=== PATIENT | female | born 1990 | race Caucasian/White ===

== ENCOUNTER → 2017-09-23 23:55 | Observation (INO) ==
[2017-09-23 23:21] LABS: Bilirubin,Urine Negative (Negative); Blood,Urine Negative (Negative); Clarity,Urine Clear (Clear); Color,Urine Yellow (Yellow); Glucose,Urine (UA) Normal (Normal); Ketones,Urine Negative (Negative); Leukocyte Esterase,Urine Negative (Negative); Nitrite,Urine Negative (Negative); Protein,Urine Negative (Neg-Trace); Specific Gravity,Urine < 1.005 (1.010-1.025); Urobilinogen,Urine Normal (Normal)
[2017-09-23 23:40] LABS: Amphetamine Screen,Urine Negative ng/mL (Cutoff=1000); Barbiturate Screen,Urine Negative ng/mL (Cutoff=200); Benzodiazepines Screen,Urine Negative ng/mL (Cutoff=200); Cannabinoid Screen,Urine Negative ng/mL (Cutoff = 50); Cocaine Screen,Urine Negative ng/mL (Cutoff= 300); Opiate Screen,Urine Negative ng/mL (Cutoff=300); Phencyclidine Screen,Urine Negative ng/mL (Cutoff=25)
--- NOTE | 2017-09-24 00:41 | OB/GYN Progress Note ---
Date of Encounter: 09/24/17 Time of Encounter: 22:44 - Assessment and Plan (1) 35 weeks gestation of Current Visit: Yes Status: Acute Continue care as scheduled labor precautions given Revised kick count instructions given Discharge home Subjective - Subjective Principal diagnosis: decreased movement Interval history: Ms. Lanier 27-year-old G1 at 35 weeks states she has not felt the baby move since yesterday. She reports she has tried many maneuvers in order to facilitate baby movement and none have been successful. She denies contractions, leakage of fluid, vaginal bleeding. Antepartum ROS: no loss of fluid, no vaginal bleeding, no movement normal , no contractions Objective - Vital Signs Vital Signs: Intake and Output 09/23/17 09/23/17 09/24/17 15:59 23:59 07:59 Other: Weight 125.1 kg - Exam FHR: category 1 FHR comments: Baseline 135 Moderate variability Accelerations present 15 x 15 No decelerations FHR category I No toco activity Auscultation: bilateral: normal Abdomen: Present: normal appearance, soft, gravid Uterus: Present: normal, firm - Labs Labs: Abnormal lab results Ur Specific [place] < 1.005 (1.010-1.025) L 09/23/17 22:56
== END | disposition home or self-care (01) ==
LOC: 1NENULAB
PROVIDERS: ADMIT Advanced Practice Midwife; ATTEND Advanced Practice Midwife

== ENCOUNTER 2017-10-20 07:59 | Inpatient (IN) ==
[2017-10-20] MEDS ORDERED: Ondansetron 4 MG/2 ML VIAL IVP PRN (08:02)
[2017-10-20] MEDS ORDERED: miSOPROStol 25 MCG TABLET PO PRN (08:02)
[2017-10-20] MEDS ORDERED: Metoclopramide 10 MG/2 ML VIAL IVP PRN (08:02)
[2017-10-20] MEDS ORDERED: Famotidine 20 MG/2 ML VIAL IVP PRN (08:02)
[2017-10-20] MEDS ORDERED: Lidocaine 1% 20 ML MDV INFILT PRN (08:02)
[2017-10-20] MEDS ORDERED: Naloxone 0.4 MG/ML INJ IVP PRN (08:02)
[2017-10-20] MEDS: Ringers Solution, Lactated 1,000 ML IVC SCH ×2 (08:37→13:40)
[2017-10-20 08:52] LABS: Basophils % 0.4 %; Eosinophils # 0.1 K/mcL (0.0-0.6); Hemoglobin 11.8 g/dL (11.5-15.4); Immature Granulocytes % 0.4 % (0-4); Lymphocytes # 1.8 K/mcL (0.6-4.6); Lymphocytes % 22.3 %; Mean Corpuscular HGB Conc 33.7 g/dL (31.6-35.5); Mean Corpuscular Hemoglobin 28.4 pg (28.0-33.3); Mean Corpuscular Volume 84.3 fL (83.0-100.0); Mean Platelet Volume 11.3 fL (9.4-12.4); Monocytes # 0.5 K/mcL (0.0-1.3); Monocytes % 5.6 %; Neutrophils # 5.8 K/mcL (1.6-8.9); Platelet Count 201 K/mcL (140-400); Red Blood Count 4.15 M/mcL (3.82-4.97); Red Cell Distribution Width 12.9 % (11.5-14.5); Segmented Neutrophils % 70.3 %
[2017-10-20 08:57] LABS: Amphetamine Screen,Urine Negative ng/mL (Cutoff=1000); Barbiturate Screen,Urine Negative ng/mL (Cutoff=200); Benzodiazepines Screen,Urine Negative ng/mL (Cutoff=200); Cannabinoid Screen,Urine Negative ng/mL (Cutoff = 50); Cocaine Screen,Urine Negative ng/mL (Cutoff= 300); Opiate Screen,Urine Negative ng/mL (Cutoff=300); Phencyclidine Screen,Urine Negative ng/mL (Cutoff=25)
--- NOTE | 2017-10-20 09:36 | OB/GYN History & Physical ---
Date of Encounter: 10/20/17 Time of Encounter: 09:33 Assessment and Plan (1) 39 weeks gestation of Current visit: Yes Status: Acute Admit for IOL Routine labor management GBS negative Cytotec / banks Consider AROM and / or pitocin Anticipate vaginal delivery POC per consult with Dr Gee History of Present Illness Chief complaint: IOL HPI: Ms. Lanier is a 27 year old at 39 weeks 0 days that presents to labor and delivery for a scheduled induction of labor. She has had no complications with this and has been seen by the midwives Labs GBS neg Blood type A+ RPR Neg HIV NR Hep B Neg Varicella Neg Rubella Neg Past Med Surg Social Fam HX - Past Medical History Medical history: non-contributory Psychiatric history: depression - Past Surgical History Surgical History: no surgical history - Social History Smoking Status: Never smoker Smokeless Tobacco Status: No Alcohol use: none Drug use: none - Family History Mother Family Member Ethnicity: Non- Living Status: Still Living Hx Family Cardiac Disorders: No Hx Family Respiratory Disorders: No Hx Family Cancer: No Hx Family GI Disorders: No Hx Family Genitourinary Disorders: No Hx Family Endocrine Disorder: No Hx Family Musculoskeletal Disorders: (multiple sclerosis) Hx Family Neuromuscular Disorders: No Hx Family Neurologic Disorders: No Hx Family HEENT Disorders: No Hx Family Autoimmune Disorders: No Hx Family Reproductive Disorders: No Hx Family Psychosocial Disorders: No Hx Family Medical Disorders: No Obstetrical History - Pregnancies : 1 Para: 0 Term: 0 : 0 Ab's: 0 Livin Medications and Allergies 3 Allergy/AdvReac Type Severity Reaction Status Date / Time No Known Allergies Allergy Verified 09/23/17 22:55 Review of System OB All systems PM: reviewed and no additional remarkable complaints except as stated Exam - Constitutional Constitutional: well developed, well nourished, no acute distress, average body habitus - HEENT HEENT: Normocephaly, Mucus Membranes Moist - Lungs Respiratory exam: CTAB - Cardiovascular Cardiovascular exam: RRR, +S1, +S2 - Abdomen Abdomen: Present: bowel sounds normal, gravid, non tender - Extremities Extremities exam: normal capillary refill, normal inspection, radial pulses palpable and symmetrical Deep Tendon Reflex Grade: 2+ Normal - Vagina Vagina: Present: normal moisture - Uterus Uterus exam: Present: normal size, normal contour Results Result Diagrams: 10/20/17 08:26 Abnormal lab results Hct 35.0 % (35.3-44.9) L 10/20/17 08:26 All other labs normal. - VTE Reasons for not Prescribing Prophylaxis: Treatment not Indicated - Low risk for VTE
--- NOTE | 2017-10-20 11:44 | OB Labor Progress Note ---
Date of Encounter: 10/20/17 Time of Encounter: 11:25 Labor Progress Note - Subjective Subjective: Resting in bed comfortably. Verbal consent given to place intracervical banks catheter if needed with vaginal exam. - Vital Signs Vital Signs: VSS - Cervix Cervix: 3/60/-2 - Heart Tones Heart Tones: 140's - [place]: Irritability noted per toco - Plan Plan: Continue routine labor management Consider 2nd dose of PO cytotec when able per orders AROM +/or pitocin GBS negative Anticipate vaginal delivery POC per consult with Dr Gee.
[2017-10-20] MEDS ORDERED: Oxytocin 20 units/ LR 1000 mL 20 UNIT/1,000 ML BAG IVC ONE (13:34)
[2017-10-20] MEDS: Oxytocin 20 units/ LR 1000 mL 20 UNIT/1,000 ML BAG IVC SCH (13:43)
--- NOTE | 2017-10-20 16:49 | Anesthesia Evaluation PreOp ---
Date of Encounter: 10/20/17 Time of Encounter: 16:47 - Past History Planned Operation: bravo Cardiac History: Denies any Significant Hx Pulmonary History: Denies Any Significant HX MEDICAL RECORD ADMINISTRATOR History: Denies Any Significant HX Other Medical History: GERD Anesthesia History: No Prior Anesthetic Complications : Yes Test: Positive Alcohol Use: none Drug use: none Medications and Allergies 3 Allergy/AdvReac Type Severity Reaction Status Date / Time No Known Allergies Allergy Verified 09/23/17 22:55 - Meds/Allergy Pre-op Review Medications Reviewed: Yes Allergies Reviewed: Yes Beta Blockers on Current Med List: No Anesthesia Results - Labs 10/20/17 08:26 Anesthesia Exam 128/8088 16 fht 133 Height: 5'10" Weight: 125 k Pain Scale: 3 Pain Scale Used: Numeric (1 - 10) - HEENT Pupil (Motor): Pupils equal Mallampati: II Teeth: Normal Oral Opening: Greater than 3 - MEDICAL RECORD ADMINISTRATOR LOC: Oriented MEDICAL RECORD ADMINISTRATOR Motor: Normal RUE, Normal LUE, Normal RLE, Normal LLE, Normal Face MEDICAL RECORD ADMINISTRATOR Sensory: Normal: RUE, LUE, RLE, LLE, Face - Cardiac Rhythm: Regular Murmur: None - Pulmonary Breath Sounds: bilateral Clear Respiratory Effort: Symmetrical Anesthesia Assess/Plan ASA Score: 2 Modified [place] Scale for Level of Consciousness: Cooperative, oriented, and tranquil Anesthetic Plan: Regional Autologous Blood: No Monitoring Plan: Standard Monitors Recovery Plan: Other (risks discussed questions answered, consented)
[2017-10-20] MEDS: *HR* Nalbuphine 10 MG/ML AMPUL IVP PRN ×2 (20:33→23:04)
[2017-10-20] MEDS ORDERED: *HR* FentaNYL (PF) 100 MCG/2 ML VIAL EP ONE (20:36)
[2017-10-20] MEDS ORDERED: *HR* Ropivacaine/PF 0.2% 20 ML VIAL EP ONE (20:36)
[2017-10-20] MEDS ORDERED: Epidural Premix (fent/bupiv) 110 ML EP SCH (20:45)
--- NOTE | 2017-10-20 22:14 | OB Labor Progress Note ---
Date of Encounter: 10/20/17 Time of Encounter: 22:11 Labor Progress Note - Subjective Subjective: Patient resting comfortably in bed - Vital Signs Vital Signs: VSS - Cervix Cervix: 5/80/-1 - Heart Tones Heart Tones: 130 - [place]: Contractions every 2-4 minutes - Plan Plan: Continue routine labor management GBS negative SROM @ 1846 clear fluid Continue pitocin titrate as needed for adequate labor pattern Patient may have nubain and/or epidural upon request Anticipate vaginal delivery POC per consult with Dr Gee
[2017-10-20] MEDS ORDERED: *HR* FentaNYL (PF) 100 MCG/2 ML VIAL ONE (23:12)
[2017-10-20] MEDS ORDERED: Lidocaine -MPF 2% 5 ML VIAL ONE (23:12)
--- NOTE | 2017-10-20 23:18 | Anesthesia Procedures ---
Date of Encounter: 10/20/17 Time of Encounter: 23:55 Procedures: Anesthesia - Epidural/Spinal Patient ID/Chart reviewed: Yes Patient examined: Yes OB Eval: Gestational age: 39 OB Eval: : 1 OB Eval: Hx Para: 0 OB Eval: Dilated at (cm): 6 OB Eval: Contractions: Non-stressed pattern Consent Obtained: Yes Supplemental Oxygen: None/Room Air Site Prep: Aseptic Technique, Sterile prep and drape, 0.5% Chlorhexidine/Alcohol Patient position: upright Local Anesthetic: Lidocaine 1% Amount of Local Anesthetic used: 3 Touhy Needle Gauge: 18 Touhy Needle Depth (cm): 9 Catheter Depth at Skin (cm): 20 Test Dose (1.5% Lido + Epi): Volume given (mls): 3 Test Dose Result: Negative Loading Dose: Fentanyl (mcg): 100 Loading Dose: Other: rop 0.2% 10cc Loading Dose Administered: Thru Touhy Needle Infusion Rate (mls/hr): 15 (pcea 5cc q30") Loss of Resistance (YOU): Yes Blood: No CSF: No Paresthesia: No Procedure: aseptic, tolerated well, VSS, effective Vitals + FHT's: 126/88 110 fht 155
--- NOTE | 2017-10-21 01:17 | OB Labor Progress Note ---
Date of Encounter: 10/21/17 Time of Encounter: 01:15 Labor Progress Note - Subjective Subjective: Resting comfortably in bed with epidural in place - Vital Signs Vital Signs: VSS - Cervix Cervix: 5-6/90/-1 - Heart Tones Heart Tones: 135 - [place]: contractions every 2-3 minutes - Interventions Interventions: IUPC and FSE placed without difficulty. Fetus and patient tolerated well - Plan Plan: Continue routine labor management GBS negative Titrate pitocin Anticipate vaginal delivery POC per consult with Dr Gee
--- NOTE | 2017-10-21 04:46 | Event Note ---
Date of Encounter: 10/21/17 Time of Encounter: 04:44 RN reports minimal variability with occasional variables and early decelerations. Category II tracing. Order given to stop pit for 2 hours and reassess as needed.
[2017-10-21] MEDS ORDERED: Lidocaine/EPI 1:200k 2% PF 20 ML VIAL ONE (06:59)
[2017-10-21] MEDS ORDERED: *HR* ROPIVACAINE 1% PF 100 MG/10 ML VIAL ONE (06:59)
--- NOTE | 2017-10-21 07:17 | Anesthesia Progress Note ---
Date of Encounter: 10/21/17 Time of Encounter: 07:15 Anesthesia Note - Note Note: 10/21/17 07:15 Called for increased pain during contractions. Bolus with 2% lidocaine with epi 5ml and 1% ropivacaine 3ml. Epidural increased to 18ml/hr. Pt tolerated well. vss. fhr stable. Feeling pressure 10mins later. No questions.
[2017-10-21] MEDS: Oxytocin 20 units/ LR 1000 mL 20 UNIT/1,000 ML BAG IVC SCH (10:23)
--- NOTE | 2017-10-21 10:43 | OB/GYN Procedure Note ---
Delivery - Delivery Date: 10/21/17 Provider: Malena Rojas Intrapartum events: prolonged 2nd stage>2.5hr Delivery induction: none Delivery augmentation: pitocin Delivery monitor: external FHT, external uterine, internal FHT, internal uterine Anesthesia: local, epidural Quantitated Blood Loss: 200 - Infant (s) Infant A Infant Delivery Date: 10/21/17 Delivery Time: 09:50 Presentation: vertex Position: TRISHA Route of delivery: Gender: Female Viability: Viable Pounds: 7 Ounces: 10 Weight Gram: 3.47 kg at 1 minute: 8 at 5 mins: 9 Shoulder Dystocia: not encountered Placenta: spontaneous Cord: 3 umbilical vessels - Repair Episiotomy: none Laceration Description: Perineal - 1st Degree - Complications Delivery complications: none Delivery comments: This is a 27-year-old G1 now P1 who was admitted for spontaneous rupture of membranes. She progressed with Pitocin augmentation to the second stage of labor. She pushed for about 2-1/2 hours. She delivered a viable female infant , TRISHA, over first-degree laceration. The infant was placed on the maternal abdomen where the cord was allowed to stop pulsating and then was clamped by isotope technician and cut by FOB. The mouth and nares suctioned on the maternal abdomen. No nuchal cord was identified. No shoulder dystocia was encountered. scores were 8 at 1 minute and 9 at 5 minutes. The weighed 7 lbs. 10 oz ( 3470g). The placenta delivered spontaneously, intact with a three-vessel cord. Inspection revealed a first-degree perineal laceration. Laceration was repaired with a 3-0 Vicryl. The uterus was firm with no active bleeding. The repair was done under epidural anesthesia. EBL was 200 mL. Placenta and umbilical artery blood gas were not sent. There were no complications during the procedure. Mom and baby are stable following delivery. - Disposition Mom disposition: stable in LDR [place] disposition: stable in LDR
[2017-10-21] MEDS ORDERED: Benzocaine/Menthol 56 GM AEROSOL SPRAY TP PRN (12:35)
[2017-10-21] MEDS ORDERED: Oxytocin 20 units/ LR 1000 mL 20 UNIT/1,000 ML BAG IVC SCH (12:35)
[2017-10-21] MEDS ORDERED: Acetaminophen 325 MG TABLET PO PRN (12:35)
[2017-10-21] MEDS: Ibuprofen 600 MG TABLET PO PRN (17:06)
[2017-10-22 07:52] VITALS: BP 110/71
[2017-10-22] MEDS ORDERED: Prenatal Vit/FA 1 EACH TABLET PO SCH (09:00)
[2017-10-22] MEDS: Ibuprofen 600 MG TABLET PO PRN (09:12)
--- NOTE | 2017-10-22 10:46 | Discharge Summary ---
Date of Encounter: 10/22/17 Time of Encounter: 10:42 - Discharge Diagnosis (1) Vaginal delivery Priority: Primary Status: Acute Comments: Doing well. Ambulating and voiding without difficulty. Tolerating regular diet well. Lochia light and without clots. in crib at bedside. States breast feeding fair, aws consultant has been in to assist patient. Mild abdominal cramping well controlled with Ibuprofen. Patient desires to go home today. - Discharge Medications Prescriptions: Ibuprofen [Motrin] 600 mg PO Q6HR PRN #30 tablet PRN Reason: Cramping Breast Pump [BREAST PUMP] 1 each .ROUTE AD #1 each Docusate [Colace] 100 mg PO BID #20 capsule Home Medications: Acetaminophen [Tylenol] 650 mg PO Q6HR PRN tablet 10/22/17 [Rx] Benzocaine/Menthol [place] [Dermoplast [place]] 1 appl TP QID PRN aerosol 10/22/17 [Rx] Breast Pump [BREAST PUMP] 1 each .ROUTE AD #1 each 10/22/17 [Rx] Docusate [Colace] 100 mg PO BID #20 capsule 10/22/17 [Rx] Ibuprofen [Motrin] 600 mg PO Q6HR PRN #30 tablet 10/22/17 [Rx] Vit/FA 1 each PO DAILY tablet 10/22/17 [Rx] Allergies/Adverse Reactions: 3 Allergy/AdvReac Type Severity Reaction Status Date / Time No Known Allergies Allergy Verified 09/23/17 22:55 Data Procedures and tests throughout hospitalization: Laboratory Tests 10/20/17 10/20/17 08:26 08:30 WBC 8.3 RBC 4.15 Hgb 11.8 Hct 35.0 L MCV 84.3 MCH 28.4 MCHC 33.7 RDW 12.9 Plt Count 201 MPV 11.3 Immature Gran % 0.4 Seg Neutrophils % 70.3 Lymphocytes % 22.3 Monocytes % 5.6 Eosinophils % 1.0 Basophils % 0.4 Neutrophils # 5.8 Lymphocytes # 1.8 Monocytes # 0.5 Eosinophils # 0.1 Basophils # 0.0 Urine Opiates Screen Negative Ur Barbiturates Screen Negative Ur Phencyclidine Scrn Negative Ur Amphetamines Screen Negative U Benzodiazepines Scrn Negative Urine Cocaine Screen Negative U Marijuana (THC) Screen Negative Ur Drug Screen Interp See Below Date of admission: 10/20/17 07:59 Primary care physician: PCP NONE Consults: 10/21/17 12:35 Consult to Metal Sorter [CONS] Routine Comment: Vaginal delivery, consult needed 10/22/17 08:51 Consult to Quill Picking Machine Operator (W&C) [CONS] Stat Reason For Exam: Risk for PPD Reason for SW Consult: Not connecting well with infant immediately after delivery yesterday. Distant with staff. Request evaluation for depression. Discharging clinician: Malena Cunningham Anticipated date of discharge: 10/22/17 - Patient Status Disposition: Home, Self-Care Condition: Good Functional capacity at discharge: independent ambulation Overall status at discharge: patient is progressing back to baseline - Discharge Instructions Follow Up With: NONE,PCP [Primary Care Provider] - Malena Rojas [Advanced Practice Nurse] - Additional Instructions: Follow up in office 4-6 weeks - Diet and Activity Activity: resume usual activities as tolerated Diet: regular diet Hospital Course Reason for admission: induction of labor Delivery: Episiotomy: none Laceration: 1st degree Other procedures: none complications: none Discharge diagnosis: IUP at term delivered [place] baby: female Time spent discussing smoking cessation with patient: 3 to 10 minutes Time Attestation: Total time spent providing and/or coordinating discharge services: Time Spent: Less than 30 minutes Exam - Constitutional Vitals: Temp Pulse Resp BP Pulse Ox 97.7 F 79 16 110/71 97 10/22/17 07:40 10/22/17 07:40 10/22/17 07:40 10/22/17 07:40 10/22/17 07:40 General appearance IM: A&O X 3, pleasant, no acute distress, answers questions appropriately - Respiratory Respiratory exam: Present: CTAB - Cardiovascular Cardiovascular exam IM: Present: RRR - GI/Abdominal GI/Abdominal exam IM: normal bowel sounds - Rectal Rectal exam: deferred - Uterine Tone: Firm Uterus Position: At Umbilicus, Midline - Extremities Exam Extremities exam IM: Present: full ROM, normal inspection, radial pulses palpable and symmetrical - Neurological Exam Neurological exam: alert, normal gait, oriented X3, reflexes normal
== END 2017-10-22 13:57 | disposition home or self-care (01) | DRG 775 ==
LOC: 1NENULAB 07:59 → 1NENUOBS 10-21 12:27
PROVIDERS: ADMIT Advanced Practice Midwife; ATTEND Advanced Practice Midwife